=== PATIENT | male | born 1990 | race Caucasian/White ===

== ENCOUNTER → 2016-07-30 | Outpatient (CLI) | payer OTHER ==
--- NOTE | 2016-07-31 06:30 | PAP/PSG TECHNICIAN REPORT ---
[facility] Director Of Real Estate Polysomnogram Report Study name: None Report date: 07/31/2016 Study date: 07/30/2016 Referring Physician: ASHWINI Barboza Name: CHE ALONSO Interpreting Physician: Yoav Lieberman D.O. Date of : 1990 Director Of Real Estate: LINO Chou. Sex: Male Age: 25 StudyType: PSG Weight: 200 lbs Height: 25 years, Height 6' 1" BMI: 26.38 Medications: See Medication List Patient History PATIENT HAS HISTORY OF DAYTIME FATIGUE, SNORING, AND WITNESSED APNEAS. ALSO, HAS HISTORY OF ANXIETY AND DEPRESSION. HE IS HERE TODAY FOR AN EVALUATION OF FLACO. ESS = 12 RM 5 Parameters Monitored NPSG: E1-M2, E2-M1, Fp1-M2, Fp2-M1, F3-M2, F4-M2, F4-M1, C3-M2, C4-M2, C4-M1, O1-M2, O2-M2, O2-M1, T3-M2, T4-M1, P3-M2, P4-M1, CHIN1, CHIN2, HR, EKG, Legs, PFLOW, SNOR, FLOW, CFLOW, Tidal Volume, THOR, ABDO, SpO2, PLTH, CPRESS, ETCO2 Wave, ETCO2, pH Sleep Architecture Sleep Stages Time at Lights Off 10:31:47 PM STAGES Time (min.) TST (%) Time at Lights On 5:46:17 AM Wake 99.5 -- Total Recording Time (TRT) 435.00 min. N1 16.5 5 Total Sleep Period (TSP) 399.5 min. N2 174.0 52 Total Sleep Time (TST) 335.0min. N3 103.0 31 Awake Time 99.5 min. REM 41.5 12 Wake after Sleep Onset 64.5 min. Sleep Efficiency (SE) 77 % Sleep Onset Latency (TADEO) 35.0 min. Number of Stage 1 Shifts None Awakenings 19 Stage Changes 85 Number of REM periods 8 REM 41.5 12 REM Latency 70.5 min. NREM 293.5 88 Body Position Analysis Supine Right Left Side Prone Vertical Total Sleep Time (min.) 327.5 0.0 75.0 74.96 0.0 0.0 Total Sleep Time (%) 78% 0% 22% 22 0% N/A% Total Sleep Time REM (min.) 24.5 0.0 17.0 None 0.0 0.0 Total Sleep Time NREM (min.) 235.5 0.0 58.0 None 0.0 0.0 Intermittent Wake (min.) 67.4 0.0 32.1 None 0.0 0.0 Total Sleep Period (%) 73% None None None None None Arousals Myoclonus (PLM) * Events Count Index Events Count Index Spontaneous 28 5 Events Awake (PLMW) 106 63.9 Respiratory 1 0.4 Events Asleep w/ Arousal (PLMA) 7 1.3 PLM 7 1 Events Asleep w/o Arousal (PLMS) 71 12.7 Snoring 1 0 Total Asleep 78 14.0 Total 37 7 Total 184 25 Respiratory Analysis * CA OA MA CH H RERA Total Count 2 0 0 0 3 0 5 Index 0.4 0.0 0.0 0 0.5 0 0.9 Mean Duration 16.0 0.0 0.0 0.00 21.3 0.0 19.2 Longest Duration 18.2 0.0 0.0 0.00 0.0 0.0 22.8 Respiratory Event Summary Total Supine ~Supine Right Left Prone REM NREM Apneas Count 2 0 2 N/A 2 N/A 0 2 Index 0.4 0 2 N/A 1.6 N/A 0 0 Hypopneas (4% Desat) Count 3 0 3 N/A 3 N/A 3 0 Index 0.5 0.0 2 N/A 2.4 N/A 4.3 0.0 Apneas & All Hypopneas Count 5 0 5 N/A 5 N/A 3 2 Index 0.9 0 4 N/A 4 N/A 4.3 0.4 Respiratory Events (Director Graphics+All Hyp+RERA) Count 5 0 5 N/A 5 N/A 3 2 Index 0.9 0 4 N/A 4.0 N/A 4.3 0.4 Respiratory Related Arousal Count 1 0 2 N/A 2 N/A 1 1 Index 0.4 0 2 N/A 2 N/A 1 0 Snoring Analysis Supine Right Left Prone REM NREM Total Snore duration 0.8 min Snores count 10 N/A 5 N/A 5 10 15 Snore mean duration 3.2 Sec Snores index 2 N/A 4 N/A 7.2 2.0 2.7 TST with snoring (%) 0.2% Desaturation Event Summary: Minimum %SpO2 Event Count Mean/Min/Max Duration(sec.) Desaturation Index % Time In Bed > 90 11 28.9 / 8.3 / 60.0 2.4 62.3 86 - 90 2 12.9 / 8.3 / 17.5 0.7 37.7 81 - 85 0 N/A 0.0 0.0 76 - 80 0 N/A 0.0 0.0 71 - 75 0 N/A 0.0 0.0 66 - 70 0 N/A 0.0 0.0 61 - 65 0 N/A 0.0 0.0 56 - 60 0 N/A 0.0 0.0 51 - 55 0 N/A 0.0 0.0 < 50 0 N/A 0.0 0.0 Total REM NREM Awake <50% 0.0 min. 0.0 min. 0.0 min. 0.0 min. 51 - 60% 0.0 min. 0.0 min. 0.0 min. 0.0 min. 61 - 70% 0.0 min. 0.0 min. 0.0 min. 0.0 min. 71 - 80% 0.0 min. 0.0 min. 0.0 min. 0.0 min. 81 - 90% 163.6 min. 10.9 min. 128.7 min. 24.0 min. 91 - 100% 269.9 min. 30.6 min. 164.8 min. 74.5 min. Average 91 91 91 91 Minimum SpO2 87 87 88 88 Desaturation Event Index 1.5 5.8 0.4 3.6 # Desat. Events below 89% 5 3 0 2 Time(%) with Saturation below 89% 0.4 0.2 0.1 0.1 Time(min.) with Saturation below 89% 1.6 0.7 0.5 0.5 Time (mins) REM (mins) NREM (mins) % of TST SpO2 Below 90% 5 3 N2 4.9 SpO2 Below 88% 3 0 0 0 Heart Rate Analysis Min (bpm) Max (bpm) Average (bpm) Awake 50 98 66 NREM 47 90 57 REM 50 77 59 Overall 47 90 57 Supplemental O2 Values Minimum O2 level: None Value Start Time End Time Director Of Real Estate Comments Mr. Alonso slept in the left and supine positions. No cardiac arrhythmia noted. Leg movements noted. No bruxism noted. Snoring was noted and scored as a 1 on a scale of 1 through 5. (0=no snoring, 5=snoring loud enough to be heard through a closed door or down the [address] way) Mr. Alonso awoke to use the restroom 0 times during the night. Mr. Alonso stated I did not sleep as well as I do when I am in my own bed. The final report will be interpreted and signed by a sleep physician. The completed physician report will then be placed in the patient medical record. Therapy (cm H2O) 0 TIB (min.) 434.5 TST (min.) 335.0 Sleep Onset (min.) 35.0 REM Onset From Sleep (min.) 70.5 Sleep Efficiency % 77 Wakefulness (%) 23 Wakefulness (min.) 99.5 NREM 1 (%) 5 NREM 1 (min.) 16.5 NREM 2 (%) 52 NREM 2 (min.) 174.0 NREM 3 (%) 31 NREM 3 (min.) 103.0 REM (%) 12 REM (min.) 41.5 # Arousals 37 Arousal Index 7 # Snore 15 Snore Index 2.7 AHI 0.9 AHI Supine 0 AHI Non-Supine 4 NREM AHI 0.4 REM AHI 4.3 RDI 0.9 # Obstructive Apnea 0 # Central Apnea 2 # Mixed Apnea 0 # Hypopneas 3 RERAs 0 Total Respiratory Events 7 Time Below SpO2 89% (min.) 1.1 Mean NREM SpO2 (%) 91 Mean REM SpO2 (%) 91 Mean Sleep SpO2 (%) 91 Min NREM SpO2 (%) 88 Min REM SpO2 (%) 87 Position Supine (min.) 327.5 Position Non-supine (min.) 75.0 LM Index Sleep 14.0 LM Index NREM 12.9 LM Index REM 21.7 Mean Heart Rate (bpm) 57 Min Heart Rate (bpm) 47
--- NOTE | 2016-08-01 07:44 | POLYSOMNOGRAPH REPORT ---
CLINICAL DATA: The patient is a 25-year-old male with a BMI of 26.38. He is referred by ASHWINI Navarro. His complaints are those of snoring, fatigue, observed apneas, and excessive daytime somnolence. He is referred for an in-lab diagnostic polysomnography. SLEEP ARCHITECTURE: The total sleep period was 399.5 minutes with a total sleep time of 335.0 minutes. The sleep efficiency was modestly reduced to 77%. The sleep onset latency was prolonged to 35.0 minutes. The REM latency was normal at 70.5 minutes. Wake after sleep onset was 64.5 minutes. Sleep consisted of stage N1 5%, stage N2 52%, stage N3 31%, stage REM 12%. AROUSAL DATA: The patient had a total of 37 arousals including 28 spontaneous arousals, 1 respiratory arousal, 7 PLM arousals, and 1 snoring arousal. The arousal index was 7. PERIODIC LIMB MOVEMENT DATA: The patient had a total of 78 periodic limb movements of sleep for an index of 14.0 events per hour. The PLM arousal index, however, was only 1.3 events per hour. EKG: There were no cardiac arrhythmias noted. The cardiac rates ranged from 47-90 beats per minute. The average heart rate was 57 beats per minute. RESPIRATORY DATA: The patient had a total of 5 respiratory events for the night including 2 central apneas and 3 hypopneas. The longest apnea was 18.2 seconds. The apnea hypopnea index was normal at 0.9 events per hour. OXIMETRY DATA: The average oxygen was 91%. The minimum saturation was 87%. Any desaturations were very transient. They may have even been artifactual. There was only 1.6 minutes with saturations less than 89%. MODEL [employer] COMMENTS: The patient slept in the left and supine positions. No cardiac arrhythmia noted. Leg movements noted. Snoring was noted and scored as a 1 on a scale of 1 through 5. IMPRESSIONS: Periodic limb movement disorder. COMMENTS: This patient had no significant sleep apnea. His apnea hypopnea index was normal at 0.9 events per hour. He had a modest number of limb movements. However, these were not associated to a significant degree with arousals. Thus, it is unlikely the limb movements are disturbing his sleep. Oxygenation was essentially normal throughout the night. This study does not explain the patient's complaints of excessive daytime somnolence. He did have an Castor Sleepiness Scale Score of 12. Thus, other reasons for his symptoms should be sought for. There is a given history of anxiety and depression. It is unclear what role these problems may play in his symptom complex. RECOMMENDATIONS: 1. Further followup is deferred to his referring provider. 2. Consideration could be given to obtaining sleep logs for 2 weeks to determine if the patient has sleep habits that may be contributing to his symptoms. 3. The patient should be advised of the appropriate principles of sleep hygiene with particular emphasis on allowing approximately 8 hours of sleep time and having a regular sleep-wake schedule. ANNIE
== END | disposition home or self-care (01) ==
LOC: C.NEUR 21:00
PROVIDERS: ATTEND Nurse Practitioner Family
DX: G47.9 Sleep disorder, unspecified (principal)

== ENCOUNTER → 2016-10-31 | Outpatient (CLI) | payer OTHER ==
--- NOTE | 2016-10-31 10:44 | DIAGNOSTIC IMAGING REPORT ---
ABDOMINAL ULTRASOUND COMPLETE HISTORY: Abnormal liver function tests HIGH BILIRUBIN. COMPARISON: None. FINDINGS: Pancreas: The pancreas demonstrates a normal echotexture. Liver: Unremarkable. Gallbladder: No gallbladder wall thickening. No gallstones. CBD: 3 mm Kidneys: No hydronephrosis. Spleen: Normal in size. Aorta: Normal in caliber. IVC: Patent. IMPRESSION: No significant abnormality identified within the within the abdomen. Electronically signed by: Harish Rios M.D. 10/31/2016 10:43 AM Dictated Date/Time: 10/31/2016 10:42 AM
== END | disposition home or self-care (01) ==
LOC: C.ULTR 09:52
PROVIDERS: ATTEND Nurse Practitioner Family
DX: Q44.7 Other congenital malformations of liver (principal)